=== PATIENT | female | born 1940 | race Caucasian/White ===

== ENCOUNTER → 2017-03-20 | Outpatient (CLI) | payer MEDICARE, OTHER ==
[~2017-03-20] MED LIST: Aspir-Low81 MG; Bactrim Ds Tab1 EACH PO; CLON.1; CLON.1 PO; FISH OIL 1,001000 MG PO; HYDURE500; HYDURE500 PO; Hydrochloroth12.5 MG; Hydrochloroth12.5 MG PO; LABE100; LOSA50; LOSA50 PO; Lopressor 50 mg50 MG PO; OMEP20ER; Omeprazole20 M1 PO; PARO20; Pyridium100 MG PO; VITAMIN D32000 UNIT
[2017-03-20 14:06] LABS: Bilirubin, Urine Neg (Neg); Blood, Urine 5+ (Neg); Glucose Qualitative, Urine Neg (Neg); Ketones, Urine Neg (Neg); Leukocyte Esterase, Urine 3+ (Neg); Nitrite, Urine Neg (Neg); Protein, Urine 1+ (Neg); Specific Gravity, Urine 1.015 (1.003-1.022); Urobilinogen, Urine NORM (Normal)
[2017-03-20 14:11] LABS: Appearance, Urine Cloudy (Clear); Color, Urine Yellow (P-Yellow)
[2017-03-20 14:14] LABS: Bacteria Few /hpf; Red Blood Cells, Urine 25-50 /hpf (0-2); Squamous Epithelial Cells Rare /hpf (Few); White Blood Cells, Urine TNTC /hpf (0-5)
== END | disposition home or self-care (01) ==
LOC: LAB 13:59
PROVIDERS: Internal Medicine Hematology & Oncology
DX: N39.0 Urinary tract infection, site not specified (principal)
CPT/HCPCS: 81001; 87077; 87086; 87186

== ENCOUNTER → 2017-10-08 | Outpatient (CLI) | payer MEDICARE, OTHER ==
[~2017-10-08] MED LIST changes: -CLON.1; -CLON.1 PO; -FISH OIL 1,001000 MG PO; -HYDURE500; -HYDURE500 PO; -Hydrochloroth12.5 MG PO; -LABE100; -LOSA50 PO; -Lopressor 50 mg50 MG PO; -Omeprazole20 M1 PO; -PARO20; -VITAMIN D32000 UNIT
[2017-10-09 11:17] LABS: Antinuclear Antibody Screen Positive Cytoplasmic (Negative)
[2017-10-10 06:13] LABS: COMPLEMENT C3, SERUM 144 mg/dL (82-167); COMPLEMENT C4, SERUM 19 mg/dL (14-44)
[2017-10-12 14:23] LABS: ANA Pattern Homogenous
== END | disposition home or self-care (01) ==
LOC: LAB 12:59 → LAB SHORT 12:59
PROVIDERS: Internal Medicine Hematology & Oncology
DX: M79.672 Pain in left foot (principal); R53.81 Other malaise; R53.83 Other fatigue; M25.559 Pain in unspecified hip
CPT/HCPCS: 86038; 86039

== ENCOUNTER → 2018-05-18 | Outpatient (CLI) | payer MEDICARE, OTHER ==
[~2018-05-18] MED LIST changes: +CLON.1; +CLON.1 PO; +FISH OIL 1,001000 MG PO; +HYDURE500; +HYDURE500 PO; +Hydrochloroth12.5 MG PO; +LABE100; +LOSA50 PO; +Lopressor 50 mg50 MG PO; +Omeprazole20 M1 PO; +PARO20; +VITAMIN D32000 UNIT
[2018-05-18 13:02] LABS: BASOPHILS ABSOLUTE AUTO 0.13 K/mm3 (0.00-0.23); BASOPHILS PERCENT AUTO 2 % (0-2); EOSINOPHILS ABSOLUTE AUTO 0.23 K/mm3 (0.00-0.68); EOSINOPHILS PERCENT AUTO 4 % (0-6); Hematocrit 43.9 % (33.0-51.0); Hemoglobin 14.1 g/dL (11.5-16.0); IMMATURE GRAN ABSOLUTE AUTO 0.02 K/mm3 (0.00-0.10); IMMATURE GRAN PERCENT AUTO 0 % (0-1); LYMPHOCYTES ABSOLUTE AUTO 0.76 K/mm3 (0.84-5.20); LYMPHOCYTES PERCENT AUTO 12 % (21-46); MONOCYTES ABSOLUTE AUTO 0.43 K/mm3 (0.16-1.47); MONOCYTES PERCENT AUTO 7 % (4-13); Mean Corpuscular HGB 30.1 pg (26.0-34.0); Mean Corpuscular HGB Conc 32.1 g/dL (31.5-36.5); Mean Corpuscular Volume 94 fL (80-100); Mean Platelet Volume 10.8 fL (9.1-12.4); NEUTROPHILS ABSOLUTE AUTO 4.89 K/mm3 (1.96-9.15); NEUTROPHILS PERCENT AUTO 76 % (41-73); Platelet Count 556 K/mm3 (150-400); RDW Standard Deviation 47.1 fL (35.1-46.3); Red Blood Cell Count 4.69 M/mm3 (3.80-5.20); White Blood Cell Count 6.46 K/mm3 (4.00-11.30)
== END | disposition home or self-care (01) ==
LOC: LAB 12:29 → LAB SHORT 12:29
PROVIDERS: Internal Medicine Hematology & Oncology
DX: D47.3 Essential (hemorrhagic) thrombocythemia (principal); R53.81 Other malaise; R53.83 Other fatigue
CPT/HCPCS: 85025

== ENCOUNTER 2018-06-07 11:01 | Emergency (ER) | payer MEDICARE, OTHER ==
[~2018-06-07] VITALS: Ht 162.6 cm; Wt 77.1 kg
[~2018-06-07 11:01] MED LIST changes: -CLON.1 PO; -HYDURE500 PO; -Hydrochloroth12.5 MG PO; -LABE100; -LOSA50 PO; -Lopressor 50 mg50 MG PO; -Omeprazole20 M1 PO
[2018-06-07] MEDS ORDERED: HYDURE500 PO (11:31)
[2018-06-07] MEDS ORDERED: Hydrochloroth12.5 MG PO (11:31)
[2018-06-07] MEDS ORDERED: Omeprazole20 M1 PO (11:31)
[2018-06-07] MEDS ORDERED: LOSA50 PO (11:31)
[2018-06-07] MEDS ORDERED: CLON.1 PO (11:32)
[2018-06-07] MEDS ORDERED: LABE100 (11:32)
[2018-06-07 11:43] LABS: BASOPHILS PERCENT AUTO 2 % (0-2); EOSINOPHILS PERCENT AUTO 3 % (0-6); Hematocrit 50.2 % (33.0-51.0); Hemoglobin 16.2 g/dL (11.5-16.0); IMMATURE GRAN ABSOLUTE AUTO 0.05 K/mm3 (0.00-0.10); IMMATURE GRAN PERCENT AUTO 1 % (0-1); LYMPHOCYTES ABSOLUTE AUTO 1.19 K/mm3 (0.84-5.20); LYMPHOCYTES PERCENT AUTO 12 % (21-46); MONOCYTES ABSOLUTE AUTO 0.62 K/mm3 (0.16-1.47); MONOCYTES PERCENT AUTO 6 % (4-13); Mean Corpuscular HGB 29.6 pg (26.0-34.0); Mean Corpuscular HGB Conc 32.3 g/dL (31.5-36.5); Mean Corpuscular Volume 92 fL (80-100); NEUTROPHILS ABSOLUTE AUTO 7.41 K/mm3 (1.96-9.15); NEUTROPHILS PERCENT AUTO 76 % (41-73); RDW Coefficient Variation 14.2 % (11.7-14.2); RDW Standard Deviation 47.7 fL (35.1-46.3); Red Blood Cell Count 5.47 M/mm3 (3.80-5.20); White Blood Cell Count 9.77 K/mm3 (4.00-11.30)
[2018-06-07 11:52] LABS: Mean Platelet Volume 11.1 fL (9.1-12.4); Platelet Count 559 K/mm3 (150-400)
[2018-06-07 12:04] LABS: Alanine Aminotransfer (ALT/SGP 35 U/L (12-78); Albumin, Blood 4.1 g/dL (3.4-5.0); Albumin/Globulin Ratio 1.1 (0.8-1.8); Alk Phos 96 U/L (50-136); Anion Gap 7 mmol/L (6-16); Aspartate Aminotrans (AST/SGOT 45 U/L (12-37); Bilirubin, Total 0.8 mg/dL (0.1-1.0); Blood Urea Nitrogen 21 mg/dL (8-24); Bun/Creatinine Ratio 15.3 (12.0-20.0); CO2, Blood 29 mmol/L (21-32); Calcium, Blood 9.3 mg/dL (8.5-10.1); Chloride, Blood 104 mmol/L (98-108); Creatinine, Blood 1.37 mg/dL (0.40-1.00); Globulin, Blood 3.9 g/dL (2.2-4.0); Glomerular Filtration Rate 39 (60-); Glucose, Blood 101 mg/dL (70-99); Sodium, Blood 140 mmol/L (136-145); Troponin I <0.015 ng/mL (0.000-0.040)
[2018-06-07 12:18] LABS: International Normalized Ratio 1.02; Prothrombin Time Results 10.8 Sec (9.7-11.5)
[2018-06-07] MEDS ORDERED: Lopressor 50 mg50 MG PO ×2 (12:59→13:00)
== END 2018-06-07 13:21 | disposition home or self-care (01) ==
LOC: ER 11:01
PROVIDERS: Emergency Medicine; Physician Assistant
DX: I48.92 Unspecified atrial flutter (principal); I10 Essential (primary) hypertension; Z88.5 Allergy status to narcotic agent; Z79.899 Other long term (current) drug therapy; Z79.82 Long term (current) use of aspirin; Z87.891 Personal history of nicotine dependence
CPT/HCPCS: 36415; 80053; 83880; 84484; 85025; 85610; 85730; 93005; 93010; 99285-25

== ENCOUNTER → 2018-08-03 | Outpatient (CLI) | payer MEDICARE, OTHER ==
[~2018-08-03] MED LIST changes: +CLON.1 PO; +HYDURE500 PO; +Hydrochloroth12.5 MG PO; +LABE100; +LOSA50 PO; +Lopressor 50 mg50 MG PO; +Omeprazole20 M1 PO
== END | disposition home or self-care (01) ==
LOC: LAB SHORT 14:17 → PLD 14:17
DX: D48.5 Neoplasm of uncertain behavior of skin (principal)
CPT/HCPCS: 88305

== ENCOUNTER 2019-06-18 00:27 | Inpatient (IN) | payer MEDICARE, OTHER ==
[~2019-06-18] VITALS: Ht 162.6 cm; Wt 74.4 kg
[2019-06-18 00:50] LABS: BASOPHILS ABSOLUTE AUTO 0.12 K/mm3 (0.00-0.23); BASOPHILS PERCENT AUTO 1 % (0-2); EOSINOPHILS ABSOLUTE AUTO 0.29 K/mm3 (0.00-0.68); EOSINOPHILS PERCENT AUTO 2 % (0-6); Hematocrit 38.7 % (33.0-51.0); Hemoglobin 12.1 g/dL (11.5-16.0); IMMATURE GRAN ABSOLUTE AUTO 0.09 K/mm3 (0.00-0.10); IMMATURE GRAN PERCENT AUTO 1 % (0-1); LYMPHOCYTES ABSOLUTE AUTO 1.14 K/mm3 (0.84-5.20); LYMPHOCYTES PERCENT AUTO 9 % (21-46); MONOCYTES ABSOLUTE AUTO 0.89 K/mm3 (0.16-1.47); MONOCYTES PERCENT AUTO 7 % (4-13); Mean Corpuscular HGB 30.6 pg (26.0-34.0); Mean Corpuscular HGB Conc 31.3 g/dL (31.5-36.5); Mean Corpuscular Volume 98 fL (80-100); NEUTROPHILS ABSOLUTE AUTO 9.88 K/mm3 (1.96-9.15); NEUTROPHILS PERCENT AUTO 80 % (41-73); RDW Coefficient Variation 13.5 % (11.7-14.2); RDW Standard Deviation 47.9 fL (35.1-46.3); Red Blood Cell Count 3.96 M/mm3 (3.80-5.20); White Blood Cell Count 12.41 K/mm3 (4.00-11.30)
[2019-06-18 00:51] LABS: Mean Platelet Volume 11.2 fL (9.1-12.4); Platelet Count 380 K/mm3 (150-400)
[2019-06-18 01:07] LABS: Alanine Aminotransfer (ALT/SGP 20 U/L (12-78); Albumin, Blood 3.3 g/dL (3.4-5.0); Albumin/Globulin Ratio 0.9 (0.8-1.8); Alk Phos 89 U/L (50-136); Anion Gap 9 mmol/L (6-16); Aspartate Aminotrans (AST/SGOT 27 U/L (12-37); Blood Urea Nitrogen 16 mg/dL (8-24); CO2, Blood 24 mmol/L (21-32); Calcium, Blood 8.7 mg/dL (8.5-10.1); Chloride, Blood 103 mmol/L (98-108); Creatinine, Blood 1.14 mg/dL (0.40-1.00); Globulin, Blood 3.5 g/dL (2.2-4.0); Glomerular Filtration Rate 49 (60-); Glucose, Blood 135 mg/dL (70-99); Potassium, Blood 4.4 mmol/L (3.5-5.5); Sodium, Blood 136 mmol/L (136-145); Total Protein, Blood 6.8 g/dL (6.4-8.2); Troponin I <0.015 ng/mL (0.000-0.040)
--- NOTE | 2019-06-18 08:31 | NUR ---
ADMISSION PT ARRIVED TO UNIT AT APROX 0800 FROM ER. PT DOES NOT APPEAR TO BE IN ANY DISTRESS AT THAT TIME WHILE AT REST. PT SBA TO BATHROOM, DID HAVE INCREASING SOB WITH AMBULATION, RR INCREASED TO 32, O2 SAT 91% AND STATED SHE FELT LIKE SHE WAS HAVING DIFFICULTY "CATCHING MY BREATH" PLACED ON 2L O2 VIA NC FOR THE INCREASED WORK OF BREATHING. AT THIS TIME O2 SAT 97% ON 2L RR 20, PT APPEARS TO BE RESTING MORE COMFORTABLY WITH DECREASED WORK OF BREATHING AND VERBALIZED FEELING IMPROVEMENT. EXPIRATORY WHEEZE/COARSE LUNG SOUNDS T/O.
--- NOTE | 2019-06-18 09:47 | NUR ---
PT HAVING INCREASED WORK OF BREATHING FOLLOWING AMBULATING TO RESTROOM, O2 SAT 97% ON 2L RR 30. PT STATES SHE FEELS LIKE "NO AIR IS GOING IN" O2 INCREASED TO 3L AND PT SITTING ON SIDE OF BED, EDUCATED ON SLOW DEEP BREATHS. RT REQUESTED TO BEDSIDE FOR BREATHING TX-RT STATES THEY WILL BE HERE FOLLOWING THE SET UP OF BI-PAP IN ANOTHER ROOM.
[2019-06-18 14:06] LABS: Adenovirus Not Detected (NOT DETECT); Bordetella pertussis Not Detected (NOT DETECT); Chlamydophila pneumoniae Not Detected (NOT DETECT); Coronavirus 229E Not Detected (NOT DETECT); Coronavirus HKU1 Not Detected (NOT DETECT); Coronavirus NL63 Not Detected (NOT DETECT); Coronavirus OC43 Not Detected (NOT DETECT); Human Metapneumovirus Not Detected (NOT DETECT); Human Rhinovirus/Enterovirus Not Detected (NOT DETECT); Influenza A Not Detected (NOT DETECT); Influenza A/2009-H1 Not Detected (NOT DETECT); Influenza A/H1 Not Detected (NOT DETECT); Influenza A/H3 Not Detected (NOT DETECT); Influenza B Not Detected (NOT DETECT); Mycoplasma pneumoniae Not Detected (NOT DETECT); Parainfluenza Virus 1 Not Detected (NOT DETECT); Parainfluenza Virus 2 Not Detected (NOT DETECT); Parainfluenza Virus 3 Not Detected (NOT DETECT); Parainfluenza Virus 4 Not Detected (NOT DETECT); Respiratory Syncytial Virus Not Detected (NOT DETECT)
[2019-06-18] MEDS ORDERED: METO25 PO (20:20)
--- NOTE | 2019-06-18 23:06 | NUR ---
MICHELLE REPORTS THAT SHE TAKES 25 MG OF METOPROLOL TWICE A DAY, NOT 50 MG. SHE STATES THAT SHE DOES RECEIVE THE 50 MG TABLETS FROM THE PHARMACY BUT DIVIDES THEM IN HALF, PER THE PRESCRIPTION. SHE SHOWED THIS NURSE HER HOME MEDICATION RECORD WHICH DOES STATE 1/2 TABLET PER DAY. ALSO, SHE STATES THAT SHE TOOK HER HYDROXYUREA YESTERDAY AND THEREFORE SHOULD TAKE IT THURSDAY, 06/18.
--- NOTE | 2019-06-19 01:40 | NUR ---
TELE PLACED. A-FIB WITH AVERAGE RATE OF 115 PER GÓMEZ HORN.
--- NOTE | 2019-06-19 04:14 | NUR ---
SHIFT SUMMARY: MICHELLE HAS RESTED COMFORTABLY FOR THE MAJORITY OF THE SHIFT. SHE DENIES ANY SOB OR CHEST PAIN. SHE WAS FOUND TO BE IN A-FIB WHICH IS A NEW OCCURENCE FOR HER. SHE DENIES ANY DIZZINESS OR LIGHTHEADEDNESS. SHE IS A STANDBY ASSIST TO THE BATHROOM. SHE USES HER CALL LIGHT APPROPRIATELY. CARDIAC TELEMETRY IN PLACE. WILL REPORT TO DAY SHIFT RN.
[2019-06-19 05:29] LABS: BASOPHILS ABSOLUTE AUTO 0.02 K/mm3 (0.00-0.23); BASOPHILS PERCENT AUTO 0 % (0-2); EOSINOPHILS ABSOLUTE AUTO 0.01 K/mm3 (0.00-0.68); EOSINOPHILS PERCENT AUTO 0 % (0-6); Hematocrit 34.7 % (33.0-51.0); Hemoglobin 10.8 g/dL (11.5-16.0); IMMATURE GRAN ABSOLUTE AUTO 0.08 K/mm3 (0.00-0.10); IMMATURE GRAN PERCENT AUTO 1 % (0-1); LYMPHOCYTES ABSOLUTE AUTO 0.49 K/mm3 (0.84-5.20); LYMPHOCYTES PERCENT AUTO 4 % (21-46); MONOCYTES ABSOLUTE AUTO 0.62 K/mm3 (0.16-1.47); MONOCYTES PERCENT AUTO 5 % (4-13); Mean Corpuscular HGB 30.4 pg (26.0-34.0); Mean Corpuscular HGB Conc 31.1 g/dL (31.5-36.5); Mean Corpuscular Volume 98 fL (80-100); Mean Platelet Volume 11.3 fL (9.1-12.4); NEUTROPHILS ABSOLUTE AUTO 12.25 K/mm3 (1.96-9.15); NEUTROPHILS PERCENT AUTO 91 % (41-73); Platelet Count 407 K/mm3 (150-400); RDW Coefficient Variation 13.8 % (11.7-14.2); RDW Standard Deviation 48.4 fL (35.1-46.3); Red Blood Cell Count 3.55 M/mm3 (3.80-5.20); White Blood Cell Count 13.47 K/mm3 (4.00-11.30)
[2019-06-19 06:16] LABS: Albumin, Blood 2.9 g/dL (3.4-5.0); Anion Gap 7 mmol/L (6-16); Blood Urea Nitrogen 16 mg/dL (8-24); CO2, Blood 25 mmol/L (21-32); Calcium, Blood 8.5 mg/dL (8.5-10.1); Chloride, Blood 108 mmol/L (98-108); Glucose, Blood 124 mg/dL (70-99); Potassium, Blood 4.3 mmol/L (3.5-5.5); Sodium, Blood 140 mmol/L (136-145)
[2019-06-19 06:17] LABS: Bun/Creatinine Ratio 14.7 (12.0-20.0); Creatinine, Blood 1.09 mg/dL (0.40-1.00); Glomerular Filtration Rate 51 (60-); Phosphorus, Blood 2.9 mg/dL (2.5-4.9)
--- NOTE | 2019-06-19 19:28 | NUR ---
SHIFT SUMMARY PT CONTINUES TO RUN AFIB TRENDING IN 120'S T/O SHIFT. PT STARTED ON CARDIZEM PER EMAR AND ALSO GIVEN A PRN DOSE. ORDERS TO INCREASE METOPROLOL. PT TRIALED ON RA, SATS DECREASED TO 86, PLACE BACK ON 2L NC. CONTINUE BREATHING TX Q4 AND PRN.
--- NOTE | 2019-06-19 19:58 | NUR ---
ISH IN ROOM HR 140'S BP STABLE. PT DENIES ANY CHEST PAIN OR PRESSURE AND STATES FEELING FINE. GAVE PT PO DOSE OF METOPROLOL 50MG NOW. NO FURTHER INTERVENTIONS AT THIS TIME PER ISH. WILL WAIT AND SEE HOW PT RESPONDS TO THE PO METOPROLOL.
--- NOTE | 2019-06-19 20:15 | NUR ---
UPON ASSESSMENT, HR ELEVATED. DISPENSING AND MEASURING OPTICIAN REPORTS SUSTAINED RHYTHM IN 140s, NEW RHYTHM OF ATRIAL FLUTTER. PT REPORTS CHEST PRESSURE. INCREASED WOB, WHEEZING THROUGHOUT. MINIMAL IMPROVEMENT WITH BREATHING TREATMENT. VSS. PT STATES SHE HAS BEEN FEELING UNWELL SINCE THIS AFTERNOON. ISH NOTIFIED, ASSESSING PT AT BEDSIDE. WCTM CLOSELY.
[2019-06-20 04:38] LABS: Hematocrit 36.3 % (33.0-51.0); Hemoglobin 11.3 g/dL (11.5-16.0); Mean Corpuscular HGB 30.2 pg (26.0-34.0); Mean Corpuscular HGB Conc 31.1 g/dL (31.5-36.5); Mean Corpuscular Volume 97 fL (80-100); Mean Platelet Volume 11.5 fL (9.1-12.4); Platelet Count 412 K/mm3 (150-400); RDW Coefficient Variation 14.5 % (11.7-14.2); RDW Standard Deviation 50.6 fL (35.1-46.3); Red Blood Cell Count 3.74 M/mm3 (3.80-5.20); White Blood Cell Count 14.83 K/mm3 (4.00-11.30)
[2019-06-20 04:53] LABS: Anion Gap 8 mmol/L (6-16); Blood Urea Nitrogen 20 mg/dL (8-24); Bun/Creatinine Ratio 17.2 (12.0-20.0); CO2, Blood 23 mmol/L (21-32); Calcium, Blood 8.6 mg/dL (8.5-10.1); Chloride, Blood 105 mmol/L (98-108); Creatinine, Blood 1.16 mg/dL (0.40-1.00); Glomerular Filtration Rate 48 (60-); Glucose, Blood 117 mg/dL (70-99); Phosphorus, Blood 2.5 mg/dL (2.5-4.9); Potassium, Blood 4.1 mmol/L (3.5-5.5); Sodium, Blood 136 mmol/L (136-145)
--- NOTE | 2019-06-20 06:25 | NUR ---
SHIFT SUMMARY: MICHELLE'S HR HAS REQUIRED INTERVENTIONS WITH MEDICATIONS, SEE MAR. SHE HAS COMPLAINED OF NOT FEELING WELL. SHE HAS HAD INCREASED WOB AND O2 DEMANDS, IS ON 7 LPM VIA HF NC. A&OX4. TOLERATING PO INTAKE WELL. SHE USES HER CALL LIGHT APPROPRIATELY. SHE IS USING THE BEDSIDE COMMODE D/T INCREASED WOB. WILL REPORT TO DAY SHIFT RN.
--- NOTE | 2019-06-20 09:25 | NUR ---
TACHY HR CONTINUES TO BE ELEVATED IN 130'S - 140'S, DESPITE ADDITIONAL MEDS. HOSPITALIST CALLED.
--- NOTE | 2019-06-20 11:43 | NUR ---
HEART RATE PT'S HR HAS MAINTAINED IN 60'S x 1 HOUR.
--- NOTE | 2019-06-20 12:43 | NUR ---
Echocardiogram complete.
--- NOTE | 2019-06-20 17:35 | NUR ---
HEART RATE TELE CALLED WHEN PT FINISHED THERAPY SESSION IN WHICH SHE WALKED > 200 FT AND MAX HR WAS 124. AT END OF THERAPY, HR WAS 85. VERY SLIGHT INCREASE IN WORK OF BREATHING BUT PT REPORTS FEELING MUCH BETTER.
--- NOTE | 2019-06-21 00:33 | NUR ---
AMBULATED TO BATHROOM, RECEIVED CALL FROM [employer] STATING THAT HER HR WAS 130'S-140'S. INFORMED THEM THAT SHE WAS IN BATHROOM. NO DISTRESS NOTED WHEN ASSISTED BACK TO BED BY TEAM DRIVER. DENIES FURTHER NEEDS OR WANTS AT THIS TIME. SAFETY MEASURES IN PLACE. WILL CONTINUE TO MONITOR.
[2019-06-21 04:41] LABS: BASOPHILS PERCENT AUTO 0 % (0-2); EOSINOPHILS PERCENT AUTO 0 % (0-6); Hematocrit 33.6 % (33.0-51.0); Hemoglobin 10.6 g/dL (11.5-16.0); IMMATURE GRAN ABSOLUTE AUTO 0.05 K/mm3 (0.00-0.10); IMMATURE GRAN PERCENT AUTO 1 % (0-1); LYMPHOCYTES PERCENT AUTO 3 % (21-46); MONOCYTES ABSOLUTE AUTO 0.18 K/mm3 (0.16-1.47); MONOCYTES PERCENT AUTO 2 % (4-13); Mean Corpuscular HGB 30.4 pg (26.0-34.0); Mean Corpuscular HGB Conc 31.5 g/dL (31.5-36.5); Mean Corpuscular Volume 96 fL (80-100); Mean Platelet Volume 11.9 fL (9.1-12.4); NEUTROPHILS ABSOLUTE AUTO 9.29 K/mm3 (1.96-9.15); NEUTROPHILS PERCENT AUTO 95 % (41-73); Platelet Count 380 K/mm3 (150-400); RDW Coefficient Variation 14.3 % (11.7-14.2); RDW Standard Deviation 49.5 fL (35.1-46.3); Red Blood Cell Count 3.49 M/mm3 (3.80-5.20); White Blood Cell Count 9.82 K/mm3 (4.00-11.30)
[2019-06-21 05:08] LABS: Magnesium, Blood 2.2 mg/dL (1.6-2.4)
[2019-06-21 05:09] LABS: Bun/Creatinine Ratio 19.3 (12.0-20.0); Creatinine, Blood 1.09 mg/dL (0.40-1.00)
--- NOTE | 2019-06-21 06:44 | NUR ---
SHIFT SUMMARY RESTING WITH EASE AT THIS TIME. RESPIRATIONS EVEN AND UNLABORED ON O2 AT 4L/NC. HAS NOT C/O PAIN THIS SHIFT. CONTINENT OF BOWEL AND BLADDER, AMBULATES TO BATHROOM WITH STANDBY ASSIST. DENIES FURTHER NEEDS OR WANTS AT THIS TIME. SAFETY MEASURES IN PLACE. WILL GIVE HAND OFF TO ONCOMING SHIFT USING SBAR.
[2019-06-21] MEDS ORDERED: PARO20 PO (07:52)
[2019-06-21] MEDS ORDERED: GUAI600T33 PO (16:08)
[2019-06-21] MEDS ORDERED: METO25 PO (16:10)
[2019-06-21] MEDS ORDERED: ELIQUIS5 MG PO (16:11)
[2019-06-21] MEDS ORDERED: ALBU90OI INH (16:11)
[2019-06-21] MEDS ORDERED: TORSE20 PO (16:12)
[2019-06-21] MEDS ORDERED: PRED20 PO (16:13)
[2019-06-21] MEDS ORDERED: LEVOFLOXACIN750 MG PO (16:13)
[2019-06-21] MEDS ORDERED: ACET325 PO (16:14)
[2019-06-21] MEDS ORDERED: ASPI81CH PO (16:14)
--- NOTE | 2019-06-21 17:24 | NUR ---
DISCHARGE PT EXCITED FOR DC. RA SINCE 1229. NO RESP DISTRESS. SCRIPTS CALLED IN. ESCORTED OUT VIA WC.
== END 2019-06-21 17:21 | disposition home or self-care (01) | DRG 871 ==
LOC: ER 00:27 → MEDS 05:25 → SURS 08:23
PROVIDERS: Emergency Medicine; Internal Medicine; ADMIT Family Medicine
DX: A41.9 Sepsis, unspecified organism (principal); J18.9 Pneumonia, unspecified organism; J44.1 Chronic obstructive pulmonary disease with (acute) exacerbation; J91.8 Pleural effusion in other conditions classified elsewhere; J44.0 Chronic obstructive pulmonary disease with (acute) lower respiratory infection; Z87.891 Personal history of nicotine dependence; E66.9 Obesity, unspecified; N18.3 Chronic kidney disease, stage 3 (moderate); J44.9 Chronic obstructive pulmonary disease, unspecified; I12.9 Hypertensive chronic kidney disease with stage 1 through stage 4 chronic kidney disease, or unspecified chronic kidney disease; R65.20 Severe sepsis without septic shock; D69.6 Thrombocytopenia, unspecified; Z68.28 Body mass index [BMI] 28.0-28.9, adult
CPT/HCPCS: 0099U; 36415; 71045; 71046; 71260; 80048; 80053; 80069; 83605; 83735; 83880; 84145; 84484; 85025; 85027; 85379; 87040; 93005; 93010; 93306; 94640; 94667; 94760; 94761; 94762; 96361; 96365; 96375; 97110; 97116; 97163; 97165; 97530; 99285-25; A9270-GY; J0456; J0696; J1650; J1940; J1956; J2920; J2930; J7030; J7050; J7120; Q9967

== ENCOUNTER → 2019-10-07 | Outpatient (CLI) | payer MEDICARE, OTHER ==
[~2019-10-07] MED LIST changes: +ACET325 PO; +ALBU90OI INH; +ASPI81CH PO; +ELIQUIS5 MG PO; +GUAI600T33 PO; +LEVOFLOXACIN750 MG PO; +METO25 PO; +PARO20 PO; +PRED20 PO; +TORSE20 PO
[2019-10-07 13:42] LABS: BASOPHILS PERCENT AUTO 3 % (0-2); EOSINOPHILS ABSOLUTE AUTO 0.17 K/mm3 (0.00-0.68); EOSINOPHILS PERCENT AUTO 3 % (0-6); Hematocrit 36.1 % (33.0-51.0); Hemoglobin 9.3 g/dL (11.5-16.0); IMMATURE GRAN ABSOLUTE AUTO 0.03 K/mm3 (0.00-0.10); IMMATURE GRAN PERCENT AUTO 0 % (0-1); LYMPHOCYTES ABSOLUTE AUTO 0.59 K/mm3 (0.84-5.20); LYMPHOCYTES PERCENT AUTO 9 % (21-46); MONOCYTES ABSOLUTE AUTO 0.51 K/mm3 (0.16-1.47); MONOCYTES PERCENT AUTO 8 % (4-13); Mean Corpuscular HGB 21.9 pg (26.0-34.0); Mean Corpuscular HGB Conc 25.8 g/dL (31.5-36.5); Mean Corpuscular Volume 85 fL (80-100); Mean Platelet Volume 12.4 fL (9.1-12.4); NEUTROPHILS ABSOLUTE AUTO 5.34 K/mm3 (1.96-9.15); NEUTROPHILS PERCENT AUTO 78 % (41-73); Platelet Count 403 K/mm3 (150-400); RDW Coefficient Variation 18.6 % (11.7-14.2); Red Blood Cell Count 4.24 M/mm3 (3.80-5.20); White Blood Cell Count 6.84 K/mm3 (4.00-11.30)
[2019-10-07 13:59] LABS: Albumin, Blood 3.7 g/dL (3.4-5.0); Albumin/Globulin Ratio 1.2 (0.8-1.8); Bilirubin, Direct 0.3 mg/dL (0.0-0.3); Bilirubin, Indirect 0.7 mg/dL (0.1-0.7); Globulin, Blood 3.1 g/dL (2.2-4.0); Total Protein, Blood 6.8 g/dL (6.4-8.2)
[2019-10-07 14:02] LABS: Thyroid Stimulating Hormone 2.39 uIU/mL (0.360-4.800)
[2019-10-07 14:07] LABS: Albumin, Blood 3.8 g/dL (3.4-5.0); Albumin/Globulin Ratio 1.2 (0.8-1.8); Bilirubin, Total 1.1 mg/dL (0.1-1.0); Bun/Creatinine Ratio 11.6 (12.0-20.0); Calcium, Blood 8.6 mg/dL (8.5-10.1); Creatinine, Blood 1.47 mg/dL (0.40-1.00); Globulin, Blood 3.1 g/dL (2.2-4.0); Potassium, Blood 3.8 mmol/L (3.5-5.5); Total Protein, Blood 6.9 g/dL (6.4-8.2)
== END | disposition home or self-care (01) ==
LOC: LAB SHORT 13:03 → LAB 13:03
PROVIDERS: Internal Medicine Cardiovascular Disease; Internal Medicine Hematology & Oncology
DX: I48.4 Atypical atrial flutter (principal); D47.3 Essential (hemorrhagic) thrombocythemia; Z79.899 Other long term (current) drug therapy
CPT/HCPCS: 80053; 80076; 84443; 85025

== ENCOUNTER → 2019-12-13 | Outpatient (CLI) | payer MEDICARE, OTHER ==
[~2019-12-13] MED LIST changes: +AMIODARONE HCL200 M1 PO; +ELIQUIS2.5 MG PO; +MERIBIN5 M1 PO
== END | disposition home or self-care (01) ==
LOC: LAB SHORT 11:22 → PLD 11:22
DX: L57.0 Actinic keratosis (principal); L81.4 Other melanin hyperpigmentation; D23.39 Other benign neoplasm of skin of other parts of face
CPT/HCPCS: 88305

== ENCOUNTER 2019-12-27 05:26 | Inpatient (IN) | payer MEDICARE, OTHER ==
[~2019-12-27] VITALS: Ht 162.6 cm; Wt 64.4 kg
[2019-12-27 05:53] LABS: BASOPHILS ABSOLUTE AUTO 0.12 K/mm3 (0.00-0.23); BASOPHILS PERCENT AUTO 1 % (0-2); EOSINOPHILS ABSOLUTE AUTO 0.23 K/mm3 (0.00-0.68); EOSINOPHILS PERCENT AUTO 3 % (0-6); Hematocrit 35.4 % (33.0-51.0); Hemoglobin 9.6 g/dL (11.5-16.0); IMMATURE GRAN ABSOLUTE AUTO 0.08 K/mm3 (0.00-0.10); IMMATURE GRAN PERCENT AUTO 1 % (0-1); LYMPHOCYTES PERCENT AUTO 6 % (21-46); MONOCYTES ABSOLUTE AUTO 0.39 K/mm3 (0.16-1.47); MONOCYTES PERCENT AUTO 5 % (4-13); Mean Corpuscular HGB 23.6 pg (26.0-34.0); Mean Corpuscular HGB Conc 27.1 g/dL (31.5-36.5); Mean Corpuscular Volume 87 fL (80-100); Mean Platelet Volume 11.1 fL (9.1-12.4); NEUTROPHILS ABSOLUTE AUTO 7.43 K/mm3 (1.96-9.15); NEUTROPHILS PERCENT AUTO 85 % (41-73); Platelet Count 393 K/mm3 (150-400); RDW Coefficient Variation 27.8 % (11.7-14.2); RDW Standard Deviation 83.9 fL (35.1-46.3); Red Blood Cell Count 4.07 M/mm3 (3.80-5.20); White Blood Cell Count 8.75 K/mm3 (4.00-11.30)
[2019-12-27 06:09] LABS: Albumin, Blood 3.1 g/dL (3.4-5.0); Bilirubin, Total 0.7 mg/dL (0.1-1.0); Bun/Creatinine Ratio 9.2 (12.0-20.0); Calcium, Blood 8.1 mg/dL (8.5-10.1); Creatinine, Blood 1.52 mg/dL (0.40-1.00); Globulin, Blood 3.1 g/dL (2.2-4.0); Potassium, Blood 3.4 mmol/L (3.5-5.5); Total Protein, Blood 6.2 g/dL (6.4-8.2)
[2019-12-27 06:16] LABS: International Normalized Ratio 1.1; Prothrombin Time Results 11.7 Sec (9.7-11.5)
--- NOTE | 2019-12-27 11:30 | NUR ---
PT ARRIVED TO UNIT AT APROX 1115 FROM ER. PT A/O. LLE INTERNALLY ROTATED, WIGGLES TOES ON COMMAND, CAP REFILL WNL. LUE IN IMMOBILIZER CAP REFILL WNL. PT RATES PAIN 5/10 AT THIS TIME.
[2019-12-27 15:58] LABS: Source, Urine Catheter
[2019-12-27 16:37] LABS: Appearance, Urine Hazy (Clear); Bilirubin, Urine Neg (Neg); Blood, Urine 1+ (Neg); Color, Urine Yellow (P-Yellow); Glucose Qualitative, Urine Neg (Neg); Ketones, Urine 1+ (Neg); Leukocyte Esterase, Urine Neg (Neg); Nitrite, Urine Neg (Neg); Protein, Urine 3+ (Neg); Specific Gravity, Urine 1.025 (1.003-1.022); Urobilinogen, Urine NORM (Normal)
[2019-12-27 17:34] LABS: Amorphous Light (0-Heavy); Bacteria Rare /hpf; Red Blood Cells, Urine 0-2 /hpf (0-2); Squamous Epithelial Cells Rare /hpf (Few); White Blood Cells, Urine 0-2 /hpf (0-5)
--- NOTE | 2019-12-28 05:13 | NUR ---
SHIFT SUMMARY PT RESTING WELL THIS AM. AAOX4. NPO. RLE INTERNALLY ROTATED + SHORTENED, ABLE TO MOVE TOES WELL. RUE WITH SLING/IMMOBILIZER, UNABLE TO MOVE FINGERS WELL. DISCOMFORT DECREASED WITH 50mcg FENTANYL Q4-5P. NO NAUSEA/EMESIS. NO ACUTE CHANGES OVER NIGHT. DAUGHTER AT BEDSIDE. PT CURRENTLY RESTING WITH CALL LIGHT IN REACH.
[2019-12-28 07:10] LABS: Hematocrit 35.7 % (33.0-51.0); Hemoglobin 9.6 g/dL (11.5-16.0); Mean Corpuscular HGB 23.8 pg (26.0-34.0); Mean Corpuscular HGB Conc 26.9 g/dL (31.5-36.5); Mean Corpuscular Volume 88 fL (80-100); Mean Platelet Volume 11.3 fL (9.1-12.4); Platelet Count 555 K/mm3 (150-400); RDW Coefficient Variation 28.5 % (11.7-14.2); RDW Standard Deviation 86.8 fL (35.1-46.3); Red Blood Cell Count 4.04 M/mm3 (3.80-5.20); White Blood Cell Count 11.75 K/mm3 (4.00-11.30)
[2019-12-28 07:20] LABS: Bun/Creatinine Ratio 11.1 (12.0-20.0); Calcium, Blood 8.6 mg/dL (8.5-10.1); Creatinine, Blood 1.35 mg/dL (0.40-1.00); Potassium, Blood 4.2 mmol/L (3.5-5.5)
--- NOTE | 2019-12-28 11:29 | NUR ---
INTO [facility] VIA SURGICAL BED FROM ROOM ON FLOOR. History, Chart, Medications and Allergies reviewed before start of procedure.Patient confirms NPO status and agrees with scheduled surgery. Surgical site prepped with 2% Chlorhexidine cloth wipe. Lungs clear T/O to Auscultation.02 AT 2L NC.
--- NOTE | 2019-12-28 12:50 | NUR ---
12/28/19 1250 Ritesh Pepe PATIENT ARRIVED TO OR WITH MARTEL IN PLACE. RIGHT ARM IN SLING BECAUSE OF A FRACTURE. SKIN INTACT BUT BRUISED.
--- NOTE | 2019-12-28 15:10 | NUR ---
PT ARRIVED BACK FROM PACU, SLEEPY, AWAKENS EASILY WHEN NAME CALLED, FOLLOWS COMMANDS, DENIES ANY PAIN, DAUGHTER AT BEDSIDE, R HIP DSG C/D/I, POLAR PACK IN PLACE, LUNGS CLEAR, DIM. IN BASES, ACTIVE BT'X X4, MARTEL CATH IN PLACE DRAINING DARK DEDE CLOUDY URINE, REPORT GIVEN TO JULISSA MARTINEZ.
--- NOTE | 2019-12-28 17:56 | NUR ---
SHIFT SUMMARY PT A&OX4, VSS, TELE NSR @ 62 BPM, 3LNC BIOX AT BEDSIDE > 93%. S/P R SEBASTIAN HIP, BULKY DRESSING CDI, POLAR SHANE, SCDS/TEDS. R SHOULDER IN SLING, NWB, WIGGLES FINGERS. PAIN MANAGED WITH 25 MCGS FENT. MADHAV PO CARDIAC DIET, DENIES N&V. MARTEL PATENT & DRAINING. DAUGHTER AT BEDSIDE. WILL REPORT TO ONCOMING NIR COSTA.
[2019-12-29 04:21] LABS: BASOPHILS ABSOLUTE AUTO 0.04 K/mm3 (0.00-0.23); BASOPHILS PERCENT AUTO 0 % (0-2); EOSINOPHILS ABSOLUTE AUTO 0.01 K/mm3 (0.00-0.68); EOSINOPHILS PERCENT AUTO 0 % (0-6); Hematocrit 31.5 % (33.0-51.0); Hemoglobin 8.6 g/dL (11.5-16.0); IMMATURE GRAN ABSOLUTE AUTO 0.05 K/mm3 (0.00-0.10); IMMATURE GRAN PERCENT AUTO 0 % (0-1); LYMPHOCYTES ABSOLUTE AUTO 0.42 K/mm3 (0.84-5.20); LYMPHOCYTES PERCENT AUTO 3 % (21-46); MONOCYTES ABSOLUTE AUTO 1.01 K/mm3 (0.16-1.47); MONOCYTES PERCENT AUTO 7 % (4-13); Mean Corpuscular HGB Conc 27.3 g/dL (31.5-36.5); Mean Corpuscular Volume 88 fL (80-100); Mean Platelet Volume 11.5 fL (9.1-12.4); NEUTROPHILS ABSOLUTE AUTO 13.03 K/mm3 (1.96-9.15); NEUTROPHILS PERCENT AUTO 90 % (41-73); Platelet Count 471 K/mm3 (150-400); RDW Coefficient Variation 28.5 % (11.7-14.2); RDW Standard Deviation 84.9 fL (35.1-46.3); Red Blood Cell Count 3.58 M/mm3 (3.80-5.20); White Blood Cell Count 14.56 K/mm3 (4.00-11.30)
[2019-12-29 04:41] LABS: Anion Gap 5 mmol/L (6-16); Blood Urea Nitrogen 19 mg/dL (8-24); Bun/Creatinine Ratio 13.7 (12.0-20.0); CO2, Blood 27 mmol/L (21-32); Calcium, Blood 8.5 mg/dL (8.5-10.1); Chloride, Blood 103 mmol/L (98-108); Creatinine, Blood 1.39 mg/dL (0.40-1.00); Glomerular Filtration Rate 39 (60-); Glucose, Blood 117 mg/dL (70-99); Magnesium, Blood 2.2 mg/dL (1.6-2.4); Phosphorus, Blood 2.1 mg/dL (2.5-4.9); Potassium, Blood 4.3 mmol/L (3.5-5.5); Sodium, Blood 135 mmol/L (136-145)
--- NOTE | 2019-12-29 06:24 | NUR ---
SHIFT SUMMARY POD 1 S/P RIGHT SEBASTIAN HIP, BULKY DRESSING APPEARS CDI WITH POLAR PACK IN PLACE. RIGHT ARM IN IMMOBILIZER. PT IS A/OX4 WITH VSS. SPO2 AT 94% ON 2L NC WITH CONT BIOX IN PLACE. MARTEL PATENT AND DRAINING YELLOW URINE, STAT LOCK IN PLACE. ABX AND IVF INFUSING PER ORDERS. MEDICATED FOR PAIN 1X WITH PO MEDICATION PER EMAR. DENIES N/V. PLAN TO WORK WITH THERAPY TODAY. PT IS CURRENTLY RESTING IN BED WITH CALL LIGHT IN REACH. WILL CONT TO MONITOR AND GIVE REPORT TO ONCOMING RN.
--- NOTE | 2019-12-29 08:13 | NUR ---
DSG CHANGED BY DR. AVINA THIS AM, AQUACEL DRESSING PLACED, DENIES ANY NEED FOR PAIN MEDS AT THIS TIME, CONT. TO MONITOR FOR ANY CHANGES, ASSIST PRN, MEDICATE FOR PAIN PRN.
--- NOTE | 2019-12-29 15:03 | NUR ---
STAFF WITNESSES HEARD A "THUMP" IN PT'S ROOM AND PT WAS FOUND LYING SUPINE ON THE FLOOR, C/O PAIN ON R SHOULDER, NO CHANGES NOTED ON R HIP SURGICAL SITE, PT DENIES ANY PAIN ON R HIP DENIED ANY OTHER PAIN AT THE TIME, VSS, A&O X4, SOME CONFUSED CONVERSATION BUT SAME THIS AM, PT ASSISTED BACK TO BED, DR. PALACIO AND DR. AVINA NOTIFIED, SEE ORDERS, PT'S DAUGHTER ALSO NOTIFIED, PT MOVED TO ROOM 214 FOR CLOSER OBSERVATION, PT LATER REPORTED HAVING A H/A, DR. PALACIO NOTIFIED, ORDERED HEAD CT, PT'S DAUGHTER AT BEDSIDE.
--- NOTE | 2019-12-29 17:38 | NUR ---
SUMMARY PT AWAKE, EATING DINNER, DENIES ANY PAIN, APPEARS TO BE COMFORTABLE, CONTINUES TO BE SLIGHTLY CONFUSED, MARTEL CATH WITH 300CC OUTPUT, DR. PALACIO AWARE, OOB WITH PT THIS AM AND UP TO CHAIR, NO OTHER CHANGES THIS SHIFT.
[2019-12-30 04:33] LABS: BASOPHILS ABSOLUTE AUTO 0.09 K/mm3 (0.00-0.23); BASOPHILS PERCENT AUTO 1 % (0-2); EOSINOPHILS ABSOLUTE AUTO 0.37 K/mm3 (0.00-0.68); EOSINOPHILS PERCENT AUTO 4 % (0-6); Hematocrit 30.4 % (33.0-51.0); Hemoglobin 8.4 g/dL (11.5-16.0); IMMATURE GRAN ABSOLUTE AUTO 0.04 K/mm3 (0.00-0.10); IMMATURE GRAN PERCENT AUTO 0 % (0-1); LYMPHOCYTES ABSOLUTE AUTO 0.52 K/mm3 (0.84-5.20); LYMPHOCYTES PERCENT AUTO 5 % (21-46); MONOCYTES ABSOLUTE AUTO 0.68 K/mm3 (0.16-1.47); MONOCYTES PERCENT AUTO 7 % (4-13); Mean Corpuscular HGB 24.1 pg (26.0-34.0); Mean Corpuscular HGB Conc 27.6 g/dL (31.5-36.5); Mean Corpuscular Volume 87 fL (80-100); Mean Platelet Volume 11.3 fL (9.1-12.4); NEUTROPHILS PERCENT AUTO 83 % (41-73); Platelet Count 469 K/mm3 (150-400); RDW Coefficient Variation 28.6 % (11.7-14.2); RDW Standard Deviation 84.2 fL (35.1-46.3); Red Blood Cell Count 3.49 M/mm3 (3.80-5.20)
[2019-12-30 04:53] LABS: Albumin, Blood 2.7 g/dL (3.4-5.0); Anion Gap 7 mmol/L (6-16); Blood Urea Nitrogen 21 mg/dL (8-24); CO2, Blood 25 mmol/L (21-32); Calcium, Blood 8.1 mg/dL (8.5-10.1); Chloride, Blood 103 mmol/L (98-108); Creatinine, Blood 1.31 mg/dL (0.40-1.00); Glomerular Filtration Rate 41 (60-); Glucose, Blood 95 mg/dL (70-99); Phosphorus, Blood 2.1 mg/dL (2.5-4.9); Potassium, Blood 4.4 mmol/L (3.5-5.5); Sodium, Blood 135 mmol/L (136-145)
--- NOTE | 2019-12-30 06:06 | NUR ---
SHIFT SUMMARY LYING IN SEMI FOWLERS WITH EYES OPEN WHILE TV IS ON. HAS SLEPT OFF AND ON THIS SHIFT. CONTINUES TO BE CONFUSED AT TIMES. REPLACED O2 TO NOSE MULTIPLE TIMES DUE TO PT REMOVING IT. SEVERAL ATTEMOTS TO GET OOB STATING, "I NEEDED TO GO PEE!" INSTRUCTED TO GO AHEAD AND PEE, AFTER SEVERAL ATTEMPTS IT IS NOTED THAT SHE HAS 150ML IN BAG. BLADDER SCAN PERFORMED AND 656ML NOTED IN BLADDER. NURSING ATTEMPTED TO FLUSH MARTEL CATH USING STERILE TECHNIQUE BUT WAS UNABLE TO. MARTEL CATH REMOVED WITH CATH TIP INTACT, TOLERATED WELL. IN TIP WAS NOTED RUST COLORED MATERIEAL WITH A EZ TEXTURE. INSTRUCTED TO URINATE. DENIES FURTHER NEDS OR WANTS AT THIS TIME. SAFETY MEASURES IN PLACE. WILL GIVE HAND OFF TO ONCOMING SHIFT USING SBAR.
--- NOTE | 2019-12-30 07:10 | NUR ---
RECVD REPORT FROM PREVIOU SHIFT RN JAMI, PT SLEEPING IN BED, BED IN LOWEST POSITOIN, BED RAILS UP X 2
--- NOTE | 2019-12-30 12:57 | NUR ---
PHYSICAL THERAPY WORKING WITH PT
--- NOTE | 2019-12-30 13:54 | NUR ---
recvd insurance approval; awaiting transport time
--- NOTE | 2019-12-30 16:11 | NUR ---
provided report to JULISSA Hammonds at [facility]. perpheral IV removed WNL. pt up to commode for void clear yellow urine. Discharge packet complete and in chart, written prescription provided. Awaiting wheelchair transport.
== END 2019-12-30 16:30 | DRG 470 ==
LOC: ER 05:26 → SURS 08:32 → ERHOLD 08:32 → SURS 10:56
PROVIDERS: Emergency Medicine; Internal Medicine; Nurse Practitioner Acute Care; Orthopaedic Surgery; ADMIT Internal Medicine
PROC: 2W3AX1Z Immobilization of Right Upper Arm using Splint (ICD-10-PCS; 2019-12-27)
PROC: 0SRR0JA Replacement of Right Hip Joint, Femoral Surface with Synthetic Substitute, Uncemented, Open Approach (ICD-10-PCS; principal; 2019-12-28 11:15)
DX: S72.001A Fracture of unspecified part of neck of right femur, initial encounter for closed fracture (principal); S42.201A Unspecified fracture of upper end of right humerus, initial encounter for closed fracture; I48.0 Paroxysmal atrial fibrillation; J44.9 Chronic obstructive pulmonary disease, unspecified; E78.5 Hyperlipidemia, unspecified; N18.3 Chronic kidney disease, stage 3 (moderate); E11.22 Type 2 diabetes mellitus with diabetic chronic kidney disease; I12.9 Hypertensive chronic kidney disease with stage 1 through stage 4 chronic kidney disease, or unspecified chronic kidney disease; K21.9 Gastro-esophageal reflux disease without esophagitis; E11.51 Type 2 diabetes mellitus with diabetic peripheral angiopathy without gangrene; D47.3 Essential (hemorrhagic) thrombocythemia; D63.1 Anemia in chronic kidney disease; W19.XXXA Unspecified fall, initial encounter; Z79.82 Long term (current) use of aspirin; Z79.01 Long term (current) use of anticoagulants; Z87.891 Personal history of nicotine dependence
CPT/HCPCS: 29105; 36415; 70450; 71045; 72170; 73030; 73502; 80048; 80053; 80069; 81001; 83735; 83880; 84145; 85025; 85027; 85610; 85730; 93005; 93010; 93306; 94640; 94660; 94760; 94762; 96365-59; 96368; 96375-59; 96376-59; 97110; 97161; 97166; 97530; 97535; 99285-25; A9270-GY; C1776; J0171; J0330; J0690; J0735; J1100; J1170; J1650; J1885; J2405; J2704; J2795; J3010; J3370; J3475; J3480; J7030; J7120; U0002

== ENCOUNTER → 2020-01-30 | Outpatient (CLI) | payer MEDICARE, OTHER ==
[2020-01-30 20:09] LABS: Percent Saturation 22.5 % (15.0-50.0)
== END | disposition home or self-care (01) ==
LOC: LAB 17:25 → LAB SHORT 17:25
PROVIDERS: Internal Medicine Hematology & Oncology
DX: D50.9 Iron deficiency anemia, unspecified (principal)
CPT/HCPCS: 82728; 83540; 83550

== ENCOUNTER 2020-04-12 10:01 | Day surgery (SDC) | payer MEDICARE, OTHER ==
[~2020-04-12] VITALS: Ht 162.6 cm; Wt 67.7 kg
[~2020-04-12 10:01] MED LIST changes: +ANORO ELLIPTA1 EAC1 INH; +POTCHL20ER PO; +Vitamin D2000 UNIT PO
--- NOTE | 2020-04-12 14:33 | NUR ---
PT DRESSED, DAUGHTER ON THE WAY, PT DC'D BY WC BY MAVIS Dee RN, DAUGHTER DRIVING PT HOME, IV DC'D INTACT, PT TAKING REST OF LUNCH HOME
--- NOTE | 2020-04-12 14:48 | NUR ---
DISCHARGE INSTRUCTIONS AND PRECAUTIONS REVIEWED WITH PATIENT. PATIENT VERBALIZED UNDERSTANDING. NO FURTHER QUESTIONS.DRESSING CLEAN AND DRY.
== END 2020-04-12 14:20 | disposition home or self-care (01) ==
LOC: MHTC 10:01
DX: I70.213 Atherosclerosis of native arteries of extremities with intermittent claudication, bilateral legs (principal); I12.9 Hypertensive chronic kidney disease with stage 1 through stage 4 chronic kidney disease, or unspecified chronic kidney disease; N18.30 Chronic kidney disease, stage 3 unspecified; I48.91 Unspecified atrial fibrillation; J44.9 Chronic obstructive pulmonary disease, unspecified; K21.9 Gastro-esophageal reflux disease without esophagitis; E78.5 Hyperlipidemia, unspecified; Z79.82 Long term (current) use of aspirin; Z79.01 Long term (current) use of anticoagulants; Z79.899 Other long term (current) drug therapy; Z88.5 Allergy status to narcotic agent; Z87.891 Personal history of nicotine dependence; Z20.828 Contact with and (suspected) exposure to other viral communicable diseases
CPT/HCPCS: 76937; 99152; 99153; C1725; C1769; C1876; C1887; C1894; C2623; J1644; J2250; J3010; J7030; Q9967

== ENCOUNTER → 2020-11-22 | Outpatient (CLI) | payer MEDICARE, OTHER ==
[2020-11-22 14:03] LABS: Stool Occult Bld Immuno 1 Negative (NEGATIVE)
== END | disposition home or self-care (01) ==
LOC: LAB 09:59 → LAB SHORT 09:59
PROVIDERS: Internal Medicine Gastroenterology
DX: D50.0 Iron deficiency anemia secondary to blood loss (chronic) (principal)
CPT/HCPCS: 82274

== ENCOUNTER → 2021-01-12 | Outpatient (CLI) | payer MEDICARE, OTHER | END | disposition home or self-care (01) | LOC: LAB 12:30 → LAB SHORT 12:30 | DX: R30.0 Dysuria (principal) | CPT/HCPCS: 87086 ==

== ENCOUNTER → 2021-01-18 | Outpatient (CLI) | payer MEDICARE, OTHER | END | disposition home or self-care (01) | LOC: LAB 14:00 → LAB SHORT 14:00 | DX: N39.0 Urinary tract infection, site not specified (principal) | CPT/HCPCS: 87077; 87086; 87186 ==

== ENCOUNTER 2021-05-02 10:00 | Inpatient (IN) | payer MEDICARE, OTHER ==
[~2021-05-02] VITALS: Ht 157.5 cm; Wt 64.4 kg
[~2021-05-02 10:00] MED LIST changes: +CEFD300 PO; +OMEP20ER PO; -Omeprazole20 M1 PO
[2021-05-02 10:51] LABS: BASOPHILS ABSOLUTE AUTO 0.06 K/mm3 (0.00-0.23); BASOPHILS PERCENT AUTO 1 % (0-2); EOSINOPHILS ABSOLUTE AUTO 0.16 K/mm3 (0.00-0.68); EOSINOPHILS PERCENT AUTO 2 % (0-6); Hemoglobin 10.7 g/dL (11.5-16.0); IMMATURE GRAN ABSOLUTE AUTO 0.05 K/mm3 (0.00-0.10); IMMATURE GRAN PERCENT AUTO 1 % (0-1); LYMPHOCYTES ABSOLUTE AUTO 0.33 K/mm3 (0.84-5.20); LYMPHOCYTES PERCENT AUTO 5 % (21-46); MONOCYTES ABSOLUTE AUTO 0.47 K/mm3 (0.16-1.47); MONOCYTES PERCENT AUTO 7 % (4-13); Mean Corpuscular HGB 27.9 pg (26.0-34.0); Mean Corpuscular HGB Conc 30.6 g/dL (31.5-36.5); Mean Corpuscular Volume 91 fL (80-100); Mean Platelet Volume 11.9 fL (9.1-12.4); NEUTROPHILS ABSOLUTE AUTO 6.19 K/mm3 (1.96-9.15); NEUTROPHILS PERCENT AUTO 85 % (41-73); Platelet Count 347 K/mm3 (150-400); Red Blood Cell Count 3.83 M/mm3 (3.80-5.20); White Blood Cell Count 7.26 K/mm3 (4.00-11.30)
[2021-05-02] MEDS ORDERED: ESCITALOPRAM OX10 MG PO (10:55)
[2021-05-02] MEDS ORDERED: BUME2 PO ×2 (10:57→19:28)
[2021-05-02] MEDS ORDERED: METO5 PO ×2 (10:58→19:30)
[2021-05-02] MEDS ORDERED: GABA100 PO (10:59)
[2021-05-02] MEDS ORDERED: Colace100 MG PO (10:59)
[2021-05-02 11:15] LABS: Albumin, Blood 3.2 g/dL (3.4-5.0); Bilirubin, Total 0.6 mg/dL (0.1-1.0); Bun/Creatinine Ratio 21.6 (12.0-20.0); Calcium, Blood 8.6 mg/dL (8.5-10.1); Creatinine, Blood 1.25 mg/dL (0.40-1.00); Globulin, Blood 3.3 g/dL (2.2-4.0); Potassium, Blood 4.1 mmol/L (3.5-5.5); Total Protein, Blood 6.5 g/dL (6.4-8.2)
[2021-05-02 12:54] LABS: Influenza A, PCR NEGATIVE (NEGATIVE); Influenza B, PCR NEGATIVE (NEGATIVE); Resp Syncytial Virus, PCR NEGATIVE (NEGATIVE)
[2021-05-02 13:10] LABS: SARS-Cov-2 (COVID-19) PCR, MMC POSITIVE (NEGATIVE)
[2021-05-02] MEDS ORDERED: METO25ER PO (16:07)
--- NOTE | 2021-05-02 18:55 | NUR ---
PT ARRIVED TO UNIT VIA GURNEY, ABLE TO SELF TRANSFER TO BED. PT ALERT AND ORIENTED, PROVIDED INSTRUCTIONS REGARDING CALL LIGHT AND ROOM PHONE. VSS, ON 2 L VIA NASAL CANNULA. ABLE TO AMBULATE TO BEDSIDE COMMODE INDEPENDENTLY WITH STEADY GAIT. PT DID NOT KNOW WHAT MEDICATIONS SHE TAKES, STATED WE SHOULD CALL HER DAUGHTER ANGEL FOR A FULL MED LIST.
--- NOTE | 2021-05-02 19:31 | NUR ---
CALLED AND SPOKE WITH PATIENT'S DAUGHTER ANGEL PER PT REQUEST, UPDATED MED LIST AND ANSWERED QUESTIONS TO SATISFACTION.
--- NOTE | 2021-05-03 03:59 | NUR ---
SHIFT SUMMARY ADMITTED FOR ACUTE/CHRONIC RESPIRATORY FAILURE. DNR CODE. COVID+, AIRBORNE PRECAUTIONS IN PLACE. PLAN IS TO DIURESE. 2,000 ML FLUID RESTRICTION. ECHO ORDERED. SHE IS ON 2 LPM O2 @ HOME, WHERE SHE LIVES NEXT TO HER DAUGHTER. SHE IS A&O X4, INDEP TO THE BSC. PERTINENT HX: CHF, COPD
[2021-05-03 05:11] LABS: BASOPHILS ABSOLUTE AUTO 0.01 K/mm3 (0.00-0.23); BASOPHILS PERCENT AUTO 0 % (0-2); EOSINOPHILS PERCENT AUTO 0 % (0-6); Hematocrit 37.8 % (33.0-51.0); Hemoglobin 11.8 g/dL (11.5-16.0); IMMATURE GRAN ABSOLUTE AUTO 0.03 K/mm3 (0.00-0.10); IMMATURE GRAN PERCENT AUTO 1 % (0-1); LYMPHOCYTES ABSOLUTE AUTO 0.29 K/mm3 (0.84-5.20); LYMPHOCYTES PERCENT AUTO 5 % (21-46); MONOCYTES PERCENT AUTO 2 % (4-13); Mean Corpuscular HGB 27.7 pg (26.0-34.0); Mean Corpuscular HGB Conc 31.2 g/dL (31.5-36.5); Mean Corpuscular Volume 89 fL (80-100); Mean Platelet Volume 11.7 fL (9.1-12.4); NEUTROPHILS ABSOLUTE AUTO 5.66 K/mm3 (1.96-9.15); NEUTROPHILS PERCENT AUTO 93 % (41-73); Platelet Count 389 K/mm3 (150-400); RDW Coefficient Variation 14.8 % (11.7-14.2); RDW Standard Deviation 47.5 fL (35.1-46.3); Red Blood Cell Count 4.26 M/mm3 (3.80-5.20); White Blood Cell Count 6.09 K/mm3 (4.00-11.30)
[2021-05-03 05:45] LABS: Bun/Creatinine Ratio 22.7 (12.0-20.0); C-REACTIVE PROTEIN, EXT RANGE 1.18 mg/dL (0.000-0.300); Calcium, Blood 9.3 mg/dL (8.5-10.1); Creatinine, Blood 1.32 mg/dL (0.40-1.00); Potassium, Blood 4.8 mmol/L (3.5-5.5)
--- NOTE | 2021-05-03 16:03 | NUR ---
PATIENT WAS DISCHARGED THIS TODAY AT 1600 VIA WHEELCHAIR WITH DAUGHTER. PATIENT UNDERSTOOD DISCHARGE INSTRUCTIONS. VSS NOTHING FURTHER TO REPORT.
== END 2021-05-03 16:00 | disposition home health service (06) | DRG 177 ==
LOC: ER 10:00 → ERHOLD 10:01 → MEDS 18:02
PROVIDERS: Emergency Medicine; ADMIT Family Medicine
PROC: 8E0ZXY6 Isolation (ICD-10-PCS; principal; 2021-05-02)
PROC: 3E0333Z Introduction of Anti-inflammatory into Peripheral Vein, Percutaneous Approach (ICD-10-PCS; 2021-05-02)
DX: U07.1 COVID-19 (principal); J96.21 Acute and chronic respiratory failure with hypoxia; I50.31 Acute diastolic (congestive) heart failure; I21.A1 Myocardial infarction type 2; I13.0 Hypertensive heart and chronic kidney disease with heart failure and stage 1 through stage 4 chronic kidney disease, or unspecified chronic kidney disease; J44.9 Chronic obstructive pulmonary disease, unspecified; N18.30 Chronic kidney disease, stage 3 unspecified; I48.91 Unspecified atrial fibrillation; D47.3 Essential (hemorrhagic) thrombocythemia; I73.9 Peripheral vascular disease, unspecified; Z66 Do not resuscitate; Z96.641 Presence of right artificial hip joint; Z87.891 Personal history of nicotine dependence; Z90.49 Acquired absence of other specified parts of digestive tract; Z95.820 Peripheral vascular angioplasty status with implants and grafts; Z79.899 Other long term (current) drug therapy; K21.9 Gastro-esophageal reflux disease without esophagitis; Z99.81 Dependence on supplemental oxygen
CPT/HCPCS: 0241U; 36415; 71045; 80048; 80053; 83880; 84484; 85025; 85651; 86140; 93005; 93010; 93306; 94640; 94760; 96374; 96375; 99285-25; A9270; J1100; J2930

== ENCOUNTER 2021-06-18 06:28 | Day surgery (SDC) | payer MEDICARE, OTHER ==
[~2021-06-18] VITALS: Ht 165.1 cm; Wt 67.0 kg
[~2021-06-18 06:28] MED LIST changes: +BUME2 PO; +Colace100 MG PO; +ESCITALOPRAM OX10 MG PO; +GABA100 PO; +METO25ER PO; +METO5 PO; +Vitamin D1000 UNI1 PO
[2021-06-18 07:40] LABS: BASOPHILS ABSOLUTE AUTO 0.13 K/mm3 (0.00-0.23); BASOPHILS PERCENT AUTO 2 % (0-2); EOSINOPHILS ABSOLUTE AUTO 0.23 K/mm3 (0.00-0.68); EOSINOPHILS PERCENT AUTO 4 % (0-6); Hematocrit 38.7 % (33.0-51.0); Hemoglobin 12.2 g/dL (11.5-16.0); IMMATURE GRAN ABSOLUTE AUTO 0.04 K/mm3 (0.00-0.10); IMMATURE GRAN PERCENT AUTO 1 % (0-1); LYMPHOCYTES ABSOLUTE AUTO 0.71 K/mm3 (0.84-5.20); LYMPHOCYTES PERCENT AUTO 13 % (21-46); MONOCYTES ABSOLUTE AUTO 0.53 K/mm3 (0.16-1.47); MONOCYTES PERCENT AUTO 9 % (4-13); Mean Corpuscular HGB 27.8 pg (26.0-34.0); Mean Corpuscular HGB Conc 31.5 g/dL (31.5-36.5); Mean Corpuscular Volume 88 fL (80-100); Mean Platelet Volume 10.9 fL (9.1-12.4); NEUTROPHILS ABSOLUTE AUTO 3.98 K/mm3 (1.96-9.15); NEUTROPHILS PERCENT AUTO 71 % (41-73); Platelet Count 368 K/mm3 (150-400); RDW Coefficient Variation 18.7 % (11.7-14.2); Red Blood Cell Count 4.39 M/mm3 (3.80-5.20); White Blood Cell Count 5.62 K/mm3 (4.00-11.30)
[2021-06-18 07:53] LABS: International Normalized Ratio 1.04; Prothrombin Time Results 10.9 Sec (9.7-11.5)
[2021-06-18 08:37] LABS: Bun/Creatinine Ratio 16.8 (12.0-20.0); Calcium, Blood 9.3 mg/dL (8.5-10.1); Creatinine, Blood 1.49 mg/dL (0.40-1.00)
--- NOTE | 2021-06-18 11:23 | NUR ---
HOB RAISED TO 90 DEGREES, RIGHT GROIN SITE APPEARS TO BE SOFT NON TENDER WITH NO BLEEDING OR OOZING NOTED. PT DENIES PAIN. DAUGHTER AT BEDSIDE. WILL CONTINUE TO MONITOR GROIN SITE. CALL LIGHT IN REACH.
--- NOTE | 2021-06-18 11:43 | NUR ---
PT UP OUT OF BED, AMBULATES TO RESTROOM WITH SLOW STEADY GAIT. UNMEASURED VOID. RIGHT GROIN SITE APPEARS SOFT NON TENDER WITH NO PAIN OR BLEEDING NOTED. DRESSING CLEAN, DRY, AND INTACT. GETS DRESSED WITH NO NEEDED ASSISTANCE.
== END 2021-06-18 12:00 | disposition home or self-care (01) ==
LOC: SDS 06:28 → MHTC 06:29 → SDS 12:00
PROVIDERS: Radiology Diagnostic Radiology
DX: I70.213 Atherosclerosis of native arteries of extremities with intermittent claudication, bilateral legs (principal); I48.91 Unspecified atrial fibrillation; I13.0 Hypertensive heart and chronic kidney disease with heart failure and stage 1 through stage 4 chronic kidney disease, or unspecified chronic kidney disease; N18.30 Chronic kidney disease, stage 3 unspecified; I50.9 Heart failure, unspecified; J44.9 Chronic obstructive pulmonary disease, unspecified; K21.9 Gastro-esophageal reflux disease without esophagitis; Z79.01 Long term (current) use of anticoagulants; Z87.891 Personal history of nicotine dependence; Z88.5 Allergy status to narcotic agent; Z91.048 Other nonmedicinal substance allergy status
CPT/HCPCS: 76937; 80048; 85025; 85610; 99152; 99153; C1725; C1760; C1769; C1887; C1894; J1644; J2250; J3010; J7030; J7050; Q9967

== ENCOUNTER → 2021-07-01 | Outpatient (CLI) | payer MEDICARE, OTHER ==
[2021-07-01 11:13] LABS: BASOPHILS ABSOLUTE AUTO 0.11 K/mm3 (0.00-0.23); BASOPHILS PERCENT AUTO 1 % (0-2); EOSINOPHILS ABSOLUTE AUTO 0.04 K/mm3 (0.00-0.68); EOSINOPHILS PERCENT AUTO 0 % (0-6); Hematocrit 38.9 % (33.0-51.0); Hemoglobin 12.6 g/dL (11.5-16.0); IMMATURE GRAN PERCENT AUTO 1 % (0-1); LYMPHOCYTES ABSOLUTE AUTO 0.42 K/mm3 (0.84-5.20); LYMPHOCYTES PERCENT AUTO 3 % (21-46); MONOCYTES ABSOLUTE AUTO 1.31 K/mm3 (0.16-1.47); MONOCYTES PERCENT AUTO 8 % (4-13); Mean Corpuscular HGB 27.8 pg (26.0-34.0); Mean Corpuscular HGB Conc 32.4 g/dL (31.5-36.5); Mean Corpuscular Volume 86 fL (80-100); Mean Platelet Volume 11.1 fL (9.1-12.4); NEUTROPHILS ABSOLUTE AUTO 14.74 K/mm3 (1.96-9.15); NEUTROPHILS PERCENT AUTO 88 % (41-73); Platelet Count 450 K/mm3 (150-400); RDW Standard Deviation 58.9 fL (35.1-46.3); Red Blood Cell Count 4.53 M/mm3 (3.80-5.20); White Blood Cell Count 16.72 K/mm3 (4.00-11.30)
[2021-07-01 11:25] LABS: Albumin, Blood 3.4 g/dL (3.4-5.0); Albumin/Globulin Ratio 0.9 (0.8-1.8); Bilirubin, Total 1.8 mg/dL (0.1-1.0); Bun/Creatinine Ratio 13.1 (12.0-20.0); Calcium, Blood 9.4 mg/dL (8.5-10.1); Creatinine, Blood 1.53 mg/dL (0.40-1.00); Potassium, Blood 3.1 mmol/L (3.5-5.5); Total Protein, Blood 7.4 g/dL (6.4-8.2)
== END | disposition home or self-care (01) ==
LOC: LAB SHORT 11:10 → LAB 11:10
PROVIDERS: Family Medicine
DX: J18.0 Bronchopneumonia, unspecified organism (principal)
CPT/HCPCS: 80053; 85025

== ENCOUNTER → 2022-02-08 | Outpatient (CLI) | payer MEDICARE | END | disposition home or self-care (01) | LOC: LAB SHORT 15:23 → LAB 15:23 | DX: N39.0 Urinary tract infection, site not specified (principal) | CPT/HCPCS: 87077; 87086; 87186 ==

== ENCOUNTER 2023-03-12 09:32 | Observation (INO) | payer MEDICARE, OTHER ==
[~2023-03-12] VITALS: Ht 162.6 cm; Wt 70.9 kg
[2023-03-12 10:21] LABS: BASOPHILS PERCENT AUTO 1 % (0-2); EOSINOPHILS ABSOLUTE AUTO 0.05 K/mm3 (0.00-0.68); EOSINOPHILS PERCENT AUTO 1 % (0-6); Hematocrit 30.8 % (33.0-51.0); Hemoglobin 9.3 g/dL (11.5-16.0); IMMATURE GRAN ABSOLUTE AUTO 0.04 K/mm3 (0.00-0.10); IMMATURE GRAN PERCENT AUTO 1 % (0-1); LYMPHOCYTES ABSOLUTE AUTO 0.53 K/mm3 (0.84-5.20); LYMPHOCYTES PERCENT AUTO 7 % (21-46); MONOCYTES PERCENT AUTO 8 % (4-13); Mean Corpuscular HGB 25.3 pg (26.0-34.0); Mean Corpuscular HGB Conc 30.2 g/dL (31.5-36.5); Mean Corpuscular Volume 84 fL (80-100); Mean Platelet Volume 11.5 fL (9.1-12.4); NEUTROPHILS ABSOLUTE AUTO 6.47 K/mm3 (1.96-9.15); NEUTROPHILS PERCENT AUTO 83 % (41-73); Platelet Count 350 K/mm3 (150-400); RDW Coefficient Variation 15.6 % (11.7-14.2); RDW Standard Deviation 47.1 fL (35.1-46.3); Red Blood Cell Count 3.68 M/mm3 (3.80-5.20); White Blood Cell Count 7.79 K/mm3 (4.00-11.30)
[2023-03-12 10:40] LABS: Albumin, Blood 3.4 g/dL (3.4-5.0); Albumin/Globulin Ratio 1.1 (0.8-1.8); Bilirubin, Total 0.6 mg/dL (0.1-1.0); Bun/Creatinine Ratio 18.8 (12.0-20.0); Calcium, Blood 8.7 mg/dL (8.5-10.1); Creatinine, Blood 2.29 mg/dL (0.40-1.00); Potassium, Blood 4.4 mmol/L (3.5-5.5); Total Protein, Blood 6.4 g/dL (6.4-8.2)
[2023-03-12 11:10] LABS: Influenza A, PCR Negative (NEGATIVE); Influenza B, PCR Negative (NEGATIVE); Resp Syncytial Virus, PCR Negative (NEGATIVE); SARS-Cov-2 (COVID-19) PCR, MMC Negative (NEGATIVE)
[2023-03-12 11:34] LABS: Source, Urine Clean Catch
[2023-03-12 11:37] LABS: Bilirubin, Urine Neg (Neg); Blood, Urine Neg (Neg); Color, Urine Yellow (P-Yellow); Glucose Qualitative, Urine Neg (Neg); Ketones, Urine Neg (Neg); Leukocyte Esterase, Urine Neg (Neg); Nitrite, Urine Neg (Neg); Protein, Urine 2+ (Neg); Specific Gravity, Urine 1.025 (1.003-1.022); Urobilinogen, Urine NORM (Normal)
[2023-03-12 11:44] LABS: Appearance, Urine Hazy (Clear)
[2023-03-12 11:47] LABS: Bacteria Rare /hpf; Hyaline Casts 0-2 /lpf (0-2); Red Blood Cells, Urine 0-2 /hpf (0-2); Squamous Epithelial Cells Few /hpf (Few); Uric Acid Crystals Many /hpf; White Blood Cells, Urine 0-2 /hpf (0-5)
[2023-03-12] MEDS ORDERED: SPIRONOLACTONE25 MG PO (13:54)
[2023-03-12 15:53] VITALS: BP 151/90
--- NOTE | 2023-03-12 17:14 | NUR ---
PT ARRIVED TO THE MEDICAL FLOOR VIA GURNEY FROM THE ER. PT IS A/OX4 ABLE TO GET UP FROM THE GURNEY AND TRANSFER TO THE BED WITH MINIMAL ASSISTANCE, PT DID REPORT DIZZINESS AND WEAKNESS WHEN TRANSFERING. THE PT DENIES ANY C/P AT THIS TIME. PT REPORTS CHRONIC PAIN IN HER HIPS BILATERALY. PT WAS ORIENTED TO THE ROOM LAYOUT AND CALL SYSTEM. PTS DAUGHTER IS AT THE BEDSIDE, CALL LIGHT IN REACH, BED IN THE LOW POSITION. PT IS ON O2 AT 2L/MIN. PT IS IN A- FLUTTER PER TELE MONITOR.
[2023-03-12 19:24] VITALS: BP 142/98
[2023-03-13 01:09] LABS: BASOPHILS PERCENT AUTO 1 % (0-2); EOSINOPHILS ABSOLUTE AUTO 0.14 K/mm3 (0.00-0.68); EOSINOPHILS PERCENT AUTO 2 % (0-6); Hematocrit 31.5 % (33.0-51.0); Hemoglobin 9.4 g/dL (11.5-16.0); IMMATURE GRAN ABSOLUTE AUTO 0.04 K/mm3 (0.00-0.10); IMMATURE GRAN PERCENT AUTO 1 % (0-1); LYMPHOCYTES ABSOLUTE AUTO 0.56 K/mm3 (0.84-5.20); LYMPHOCYTES PERCENT AUTO 7 % (21-46); MONOCYTES ABSOLUTE AUTO 0.74 K/mm3 (0.16-1.47); MONOCYTES PERCENT AUTO 9 % (4-13); Mean Corpuscular HGB 24.7 pg (26.0-34.0); Mean Corpuscular HGB Conc 29.8 g/dL (31.5-36.5); Mean Corpuscular Volume 83 fL (80-100); Mean Platelet Volume 11.2 fL (9.1-12.4); NEUTROPHILS ABSOLUTE AUTO 6.68 K/mm3 (1.96-9.15); NEUTROPHILS PERCENT AUTO 81 % (41-73); Platelet Count 372 K/mm3 (150-400); RDW Coefficient Variation 15.6 % (11.7-14.2); RDW Standard Deviation 46.6 fL (35.1-46.3); Red Blood Cell Count 3.81 M/mm3 (3.80-5.20); White Blood Cell Count 8.26 K/mm3 (4.00-11.30)
[2023-03-13 01:47] LABS: Albumin, Blood 3.5 g/dL (3.4-5.0); Albumin/Globulin Ratio 1.2 (0.8-1.8); Bilirubin, Total 0.7 mg/dL (0.1-1.0); Bun/Creatinine Ratio 18.6 (12.0-20.0); Calcium, Blood 8.7 mg/dL (8.5-10.1); Creatinine, Blood 1.94 mg/dL (0.40-1.00); Globulin, Blood 2.9 g/dL (2.2-4.0); Potassium, Blood 4.4 mmol/L (3.5-5.5); Total Protein, Blood 6.4 g/dL (6.4-8.2)
[2023-03-13 03:43] VITALS: BP 130/87
--- NOTE | 2023-03-13 04:17 | NUR ---
SHIFT SUMMARY PATIENT A/Ox3-4, INTERMITTENT CONFUSION/FORGETFULNESS, EASILY REDIRECTABLE. PLEASANT AFFECT, COOPERATIVE WITH CARES. REQUIRES SBA TO BATHROOM. CONTINUES ON TELE, AFLUTTER/ST WITH HR 90 TO LOW 100s. TROPONIN CONTINUES TO TREND DOWN. NO C/O CHEST PAIN/SOB, DENIES PAIN/DISCOMFORT. NO ACUTE CHANGES NOTED OVERNIGHT. BED LOCKED AND IN LOWEST POSITION, CALL LIGHT WITHIN REACH.
[2023-03-13 07:44] VITALS: BP 142/99
[2023-03-13] MEDS ORDERED: METO25 PO (11:41)
--- NOTE | 2023-03-13 12:48 | NUR ---
PT DISCHARGED THE PTS DAUGHTER VERBALIZED UNDERSTANDING OF THE PTS DC INSTRUCTIONS. THE PTS PRESCRIPTION WAS FAXED TO [facility]. PT WAS TRANSFERED VIA WHEELCHAIR ACCOMPANIED BY THE RUSSIAN TEACHER AND HER DAUGHTER. PT WAS REMINDED TO FOLLOW UP WITH HER PCP WITHIN 1 WEEK.
== END 2023-03-13 12:50 | disposition home or self-care (01) ==
LOC: ER 09:32 → MEDS 09:33 → ER 14:42 → MEDS 14:42 → ENPENDDIS 03-13 11:10 → MEDS 03-13 12:50
PROVIDERS: Emergency Medicine; ADMIT Internal Medicine
DX: R79.89 Other specified abnormal findings of blood chemistry (principal); I48.0 Paroxysmal atrial fibrillation; J44.9 Chronic obstructive pulmonary disease, unspecified; J96.11 Chronic respiratory failure with hypoxia; F32.A Depression, unspecified; K21.9 Gastro-esophageal reflux disease without esophagitis; G89.29 Other chronic pain; I73.9 Peripheral vascular disease, unspecified; I13.2 Hypertensive heart and chronic kidney disease with heart failure and with stage 5 chronic kidney disease, or end stage renal disease; N18.6 End stage renal disease; I50.33 Acute on chronic diastolic (congestive) heart failure; Z79.899 Other long term (current) drug therapy; Z87.891 Personal history of nicotine dependence; Z99.81 Dependence on supplemental oxygen; Z88.5 Allergy status to narcotic agent
CPT/HCPCS: 0241U; 36415; 71046; 80053; 81001; 83690; 83735; 83880; 84484; 85025; 85379; 93005; 93010; 94640; 94664; 94760; 99285-25; A9270; G0008; G0378; Q2036

== ENCOUNTER → 2023-12-12 | Outpatient (CLI) | payer MEDICARE, OTHER ==
[~2023-12-12] MED LIST changes: +SPIRONOLACTONE25 MG PO
== END | disposition home or self-care (01) ==
LOC: LAB SHORT 16:04 → LAB 16:04
DX: N39.0 Urinary tract infection, site not specified (principal)
CPT/HCPCS: 87077; 87086; 87186

== ENCOUNTER → 2024-01-21 | Outpatient (CLI) | payer MEDICARE, OTHER | END | disposition home or self-care (01) | LOC: LAB SHORT 19:13 → LAB 19:13 | DX: N39.0 Urinary tract infection, site not specified (principal) | CPT/HCPCS: 87086 ==

== ENCOUNTER 2024-05-06 10:57 | Day surgery (SDC) | payer MEDICARE, OTHER ==
[~2024-05-06] VITALS: Ht 163.8 cm; Wt 69.0 kg
[2024-05-06] VITALS (7 sets, daily range): BP systolic 125–169; BP diastolic 65–74
[2024-05-06] MEDS ORDERED: NS 250 ML IV ONE (12:52)
[2024-05-06] MEDS ORDERED: NS 1,000 ML IV ONE ×2 (12:52→12:57)
[2024-05-06] MEDS ORDERED: Heparin Sodium 1000 Units/ML 10ML MDV ONE (12:52)
[2024-05-06] MEDS ORDERED: Midazolam HCl 1MG / ML 2ML Vial ONE (12:57)
[2024-05-06] MEDS ORDERED: FentaNYL Citrate 50 MCG/ML 2 ML Injection ONE (12:57)
[2024-05-06] MEDS ORDERED: Nitroglycerin 2 MG/20 ML BTL ONE (14:01)
--- NOTE | 2024-05-06 14:30 | NUR ---
pt arrived to recovery room from biological lab technician. alert and responds appropriately. right groin site soft and nontender, no hematoma, no bleeding, dressing D&I.
--- NOTE | 2024-05-06 15:30 | NUR ---
pt sitting up in bed, site remains stable
--- NOTE | 2024-05-06 16:47 | NUR ---
patient and family verbalized understanding of discharge instructions and precautions. right groin site remains soft and nontender, no hematoma, no bleeding, no C/O. No further questions. iv site dced with catheter intact. pt taken to waiting car via wheel chair by Desi.
== END 2024-05-06 23:00 | disposition home or self-care (01) ==
LOC: MHTC 10:57
DX: I73.9 Peripheral vascular disease, unspecified (principal); M48.061 Spinal stenosis, lumbar region without neurogenic claudication; I12.9 Hypertensive chronic kidney disease with stage 1 through stage 4 chronic kidney disease, or unspecified chronic kidney disease; N18.30 Chronic kidney disease, stage 3 unspecified; I48.91 Unspecified atrial fibrillation; J43.9 Emphysema, unspecified; Z87.891 Personal history of nicotine dependence; Z88.5 Allergy status to narcotic agent; Z91.09 Other allergy status, other than to drugs and biological substances; Z79.01 Long term (current) use of anticoagulants; Z79.899 Other long term (current) drug therapy; Z86.16 Personal history of COVID-19; Z90.49 Acquired absence of other specified parts of digestive tract
CPT/HCPCS: 76937; 99152; 99153; C1725; C1760; C1769; C1887; C1894; J1644; J2250; J3010; J7030; J7050; Q9967

== ENCOUNTER 2024-12-24 21:17 | Emergency (ER) | payer MEDICARE, OTHER ==
[~2024-12-24] VITALS: Ht 162.6 cm; Wt 64.9 kg
[2024-12-24 22:09] LABS: BASOPHILS ABSOLUTE AUTO 0.07 K/mm3 (0.00-0.23); BASOPHILS PERCENT AUTO 1 % (0-2); EOSINOPHILS ABSOLUTE AUTO 0.50 K/mm3 (0.00-0.68); EOSINOPHILS PERCENT AUTO 4 % (0-6); Hematocrit 36.6 % (33.0-51.0); Hemoglobin 12.5 g/dL (11.5-16.0); IMMATURE GRAN ABSOLUTE AUTO 0.16 K/mm3 (0.00-0.10); IMMATURE GRAN PERCENT AUTO 1 % (0-1); LYMPHOCYTES ABSOLUTE AUTO 0.57 K/mm3 (0.84-5.20); LYMPHOCYTES PERCENT AUTO 5 % (21-46); MONOCYTES ABSOLUTE AUTO 1.04 K/mm3 (0.16-1.47); MONOCYTES PERCENT AUTO 8 % (4-13); Mean Corpuscular HGB Conc 34.2 g/dL (31.5-36.5); Mean Corpuscular Volume 95 fL (80-100); NEUTROPHILS ABSOLUTE AUTO 10.44 K/mm3 (1.96-9.15); NEUTROPHILS PERCENT AUTO 82 % (41-73); NRBC ABSOLUTE 0.00 K/mm3 (0.00-0.02); NRBC Auto 0.0 /100 WBC (0.0-0.2); Platelet Count 374 K/mm3 (150-400); RDW Coefficient Variation 14.2 % (11.7-14.2); RDW Standard Deviation 49.4 fL (35.1-46.3)
[2024-12-24 23:09] LABS: Alanine Aminotransfer (ALT/SGP 17.0 U/L (12-78); Albumin, Blood 2.9 g/dL (3.4-5.0); Albumin/Globulin Ratio 0.8 (0.8-1.8); Anion Gap 10.0 mmol/L (3-11); Aspartate Aminotrans (AST/SGOT 16.0 U/L (12-37); Bilirubin, Total 0.5 mg/dL (0.1-1.0); Blood Urea Nitrogen 26.0 mg/dL (8-24); CO2, Blood 24.0 mmol/L (21-32); Calcium, Blood 8.4 mg/dL (8.5-10.1); Chloride, Blood 105.0 mmol/L (98-108); Creatinine, Blood 1.82 mg/dL (0.40-1.00); Globulin, Blood 3.5 g/dL (2.2-4.0); Glucose, Blood 106.0 mg/dL (70-99); Potassium, Blood 3.7 mmol/L (3.5-5.5); Sodium, Blood 135.0 mmol/L (136-145); Total Protein, Blood 6.4 g/dL (6.4-8.2)
[2024-12-25 00:02] LABS: Prothrombin Time Results 12.1 Sec (9.7-11.5)
[2024-12-25 00:30] VITALS: BP 146/67
[2024-12-25] MEDS ORDERED: Oxymetazoline 0.05% Nasal Relief Spray 15mL BTL ONE (00:35)
== END 2024-12-25 00:48 | disposition home or self-care (01) ==
LOC: ER 21:17
PROVIDERS: Emergency Medicine
DX: R04.0 Epistaxis (principal); I10 Essential (primary) hypertension; I48.91 Unspecified atrial fibrillation; Z88.5 Allergy status to narcotic agent; Z79.899 Other long term (current) drug therapy
CPT/HCPCS: 71046; 80053; 85025; 85610; 85730; 93005; 93010; 99284-25; A9270